=== PATIENT | female | born 1945 | race Caucasian/White ===

== ENCOUNTER 2018-01-01 01:49 | Emergency (ER) | payer MEDICARE ==
[2018-01-01 03:05] LABS: Absolute Lymphocytes (CBC) 1.9 K/uL (0.7-4.9); Absolute Monocytes 0.6 K/uL (0.1-1.3); Absolute Neutrophil 2.6 K/uL (1.8-8.0); Basophils % 1.2 % (0-1.3); Eosinophils % 7.7 % (0-4.4); Hematocrit 34.9 % (36.0-45.0); Lymphocytes % 33.3 % (15.3-44.8); MCV 96.6 fL (80-100); MPV 7.6 fL (7.6-11.3); Monocytes % 11.5 % (3.3-12.3); RBC Red Blood Cell Count 3.61 M/uL (3.86-4.86)
[2018-01-01 03:08] LABS: Protime INR 0.99
[2018-01-01 03:22] LABS: ALT/SGPT 19 U/L (12-78); AST/SGOT 20 U/L (15-37); Albumin 3.6 g/dL (3.4-5.0); Alkaline Phosphatase 72 U/L (45-117); BUN Blood Urea Nitrogen 20 mg/dL (7-18); Bicarbonate 32 mmol/L (21-32); Bilirubin Direct 0.1 mg/dL (0-0.2); Bilirubin Total 0.4 mg/dL (0.2-1.0); Glucose Level 102 mg/dL (74-106); Magnesium 1.9 mg/dL (1.8-2.4); NT PRO-BNP 125 pg/mL (<125); Protein, Total 7.1 g/dL (6.4-8.2); Sodium Level 141 mmol/L (136-145); Troponin (Emerg Dept Use Only) < 0.02 ng/mL (0.0-0.045)
[2018-01-01] MEDS ORDERED: POTASSIUM CL SA 10 MEQ TAB PO ONE (04:21)
--- NOTE | 2018-01-01 05:46 | ER ---
Nurse's Notes [facility] Name: Whitney Schmidt Age: 72 yrs Sex: Female : 1945 Arrival Date: 01/01/2018 Time: 01:50 Bed 20 Private MD: Jose Shelton C Diagnosis: Chest pain. Hypokalemia Presentation: 01/01 02:12 Presenting complaint: Patient states: sharp central chest pain woke her from sleep at ak1 0030. pt denies SOB, pt denies N/V. Transition of care: patient was not received from another setting of care. Onset of symptoms was January 01, 2018 at 00:30. Risk Assessment: Do you want to hurt yourself or someone else? Patient reports no desire to harm self or others. Initial Sepsis Screen: Does the patient meet any 2 criteria? No. Patient's initial sepsis screen is negative. Does the patient have a suspected source of infection? No. Patient's initial sepsis screen is negative. Care prior to arrival: None. 02:12 Method Of Arrival: Ambulatory ak 02:12 Acuity: MIRLANDE 3 ak1 Triage Assessment: 02:16 General: Appears in no apparent distress. Behavior is calm, cooperative. Pain: Denies ak1 pain. EENT: No signs and/or symptoms were reported regarding the EENT system. Neuro: No deficits noted. Cardiovascular: Reports chest pain, Rhythm is sinus rhythm. Respiratory: No deficits noted. GI: No signs and/or symptoms were reported involving the gastrointestinal system. : No signs and/or symptoms were reported regarding the genitourinary system. Derm: No signs and/or symptoms reported regarding the dermatologic system. Musculoskeletal: No signs and/or symptoms reported regarding the musculoskeletal system. Historical: - Allergies: 02:16 Morphine; ak1 - Home Meds: 02:16 levothyroxine oral [Active]; lisinopril 5 mg Oral tab 1 tab once daily [Active]; ak1 indapamide 2.5 mg oral tab 1 tab once daily [Active]; atorvastatin 40 mg oral tab 1 tab once daily [Active]; Centrum oral oral [Active]; Citracal Oral [Active]; Ocuvite oral oral [Active]; aspirin 81 mg Oral TbEC 1 tab once daily [Active]; - PMHx: 02:16 Hypothyroidism; Hyperlipidemia; Hypertension; ak1 - PSHx: 02:16 Hysterectomy; pelvic floor sx; Tonsillectomy; Carpal Tunnel Repair; ak1 - Immunization history:: Adult Immunizations unknown. - Social history:: Smoking status: Patient/guardian denies using tobacco. - Ebola Screening: : No symptoms or risks identified at this time. Screenin:18 Abuse screen: Denies threats or abuse. Denies injuries from another. Nutritional ak1 screening: No deficits noted. Tuberculosis screening: No symptoms or risk factors identified. Fall Risk None identified. Assessment: 02:18 Pain: Denies pain. Pain does not radiate. Pain began 2 hours ago. ak1 02:18 Reassessment: see triage assessment. ak1 03:28 Reassessment: Patient appears in no apparent distress at this time. No changes from ak1 previously documented assessment. Patient and/or family updated on plan of care and expected duration. Pain level reassessed. Patient is alert, oriented x 3, equal unlabored respirations, skin warm/dry/pink. Patient states feeling better. Patient states symptoms have improved. 05:47 Reassessment: Patient appears in no apparent distress at this time. No changes from ak1 previously documented assessment. Patient and/or family updated on plan of care and expected duration. Pain level reassessed. Patient is alert, oriented x 3, equal unlabored respirations, skin warm/dry/pink. Patient states feeling better. Patient states symptoms have improved. Vital Signs: 02:16 BP 93 / 72; Pulse 72; Resp 16; Temp 97.8(O); Pulse Ox 100% on R/A; Weight 68.04 kg (R); ak1 Height 5 ft. 4 in. (162.56 cm) (R); Pain 0/10; 03:28 BP 135 / 65; Pulse 69; Resp 16; Temp 97.8; Pulse Ox 100% on R/A; Pain 0/10; ak1 05:47 BP 122 / 49; Pulse 67; Resp 16; Temp 97.8; Pulse Ox 100% on R/A; Pain 0/10; ak1 05:58 BP 127 / 67; Pulse 66; Resp 18; Pulse Ox 100% on R/A; Pain 0/10; ak1 02:16 Body Mass Index 25.75 (68.04 kg, 162.56 cm) ak1 ED Course: 01:50 Patient arrived in ED. al2 01:51 Jose Shelton MD is Private Physician. al2 01:52 Deana Elias, AIDA is Primary Nurse. ea 01:52 Stefano Wilburn MD is Attending Physician. pkl 02:12 Carrie Hobbs, RN is Primary Nurse. ak1 02:13 Triage completed. ak1 02:16 Arm band placed on Patient placed in an exam room, on a stretcher, on pulse oximetry. ak1 EKG completed in triage. Results shown to MD. 02:17 Patient maintains SpO2 saturation greater than 95% on room air. ak1 02:18 Patient has correct armband on for positive identification. Placed in gown. Bed in low ak1 position. Call light in reach. Side rails up X 1. Adult w/ patient. quality assurance monitor chassis on. Pulse ox on. NIBP on. Door closed. Warm blanket given. 02:50 Initial lab(s) drawn, by me, sent to lab. Inserted saline lock: 20 gauge in left bb antecubital area, using aseptic technique. Blood collected. 03:00 X-ray completed. Portable x-ray completed in exam room. Patient tolerated procedure sg4 well. 03:00 Radiology exam delayed due to IV insertion attempt and/or patient not having sg4 appropriate IV at this time. 03:01 XRAY Chest (1 view) In Process Unspecified. EDMS 03:36 Notified ED physician of a critical lab result(s). DDIMER [id number]. jb4 04:[address] via stretcher. kw1 05:08 CT Chest For PE Angio In Process Unspecified. EDMS 05:10 CT completed. Patient tolerated procedure well. Patient moved back from CT. kw1 05:44 Jose Shelton MD is Referral Physician. pkl 05:49 No provider procedures requiring assistance completed. ak1 05:56 IV discontinued, intact, bleeding controlled, No redness/swelling at site. Pressure ak1 dressing applied. Administered Medications: 04:19 Drug: K-Dur 40 mEq Route: PO; ak1 05:48 Follow up: Response: No adverse reaction ak1 Outcome: 05:45 Discharge ordered by MD. pkl 05:55 Discharged to home ambulatory, with family. ak1 05:55 Condition: good 05:55 Discharge instructions given to patient, family, Instructed on discharge instructions, follow up and referral plans. medication usage, Demonstrated understanding of instructions, follow-up care, medications, Prescriptions given X 1. 06:11 Patient left the ED. jb4 Signatures: Dispatcher [employer] EDMS Stefano Wilburn MD MD pkl Ballard, Brenda, RN RN bb Carrie Hobbs RN RN ak1 León Sexton RN RN jb4 Deana Elias RN RN ea Wilhelm, Kimberly kw1 Monica Burrell Susana 4
--- NOTE | 2018-01-01 05:46 | EDPHYS ---
Physician Documentation [facility] Name: Whitney Schmidt Age: 72 yrs Sex: Female : 1945 Arrival Date: 01/01/2018 Time: 01:50 Bed 20 Private MD: Jose Shelton C ED Physician Stefano Wilburn HPI: 01/01 02:29 This 72 yrs old Female presents to ER via Ambulatory with complaints of Chest pkl Pain, INDIGESTION. 02:29 The patient or guardian reports chest pain that is located primarily in the substernal pkl area. Onset: just prior to arrival, 2 hour(s) ago. The pain does not radiate. Associated signs and symptoms: The patient has no apparent associated signs or symptoms. The chest pain is described as dull. Historical: - Allergies: 02:16 Morphine; ak1 - Home Meds: 02:16 levothyroxine oral [Active]; lisinopril 5 mg Oral tab 1 tab once daily [Active]; ak1 indapamide 2.5 mg oral tab 1 tab once daily [Active]; atorvastatin 40 mg oral tab 1 tab once daily [Active]; Centrum oral oral [Active]; Citracal Oral [Active]; Ocuvite oral oral [Active]; aspirin 81 mg Oral TbEC 1 tab once daily [Active]; - PMHx: 02:16 Hypothyroidism; Hyperlipidemia; Hypertension; ak1 - PSHx: 02:16 Hysterectomy; pelvic floor sx; Tonsillectomy; Carpal Tunnel Repair; ak1 - Immunization history:: Adult Immunizations unknown. - Social history:: Smoking status: Patient/guardian denies using tobacco. - Ebola Screening: : No symptoms or risks identified at this time. ROS: 02:29 Eyes: Negative for injury, pain, redness, and discharge, ENT: Negative for injury, pkl pain, and discharge, Neck: Negative for injury, pain, and swelling. 02:29 Cardiovascular: Positive for chest pain. 02:29 Respiratory: Negative for cough, shortness of breath. 02:29 Abdomen/GI: Negative for abdominal pain, nausea, vomiting, and diarrhea. 02:29 Back: Negative for acute changes. 02:29 : Negative for urinary symptoms. 02:29 MS/extremity: Negative for acute changes. 02:29 Skin: Negative for rash. 02:29 Neuro: Negative for altered mental status. Exam: 02:29 Head/Face: Normocephalic, atraumatic. Eyes: Pupils equal round and reactive to light, pkl extra-ocular motions intact. Lids and lashes normal. Conjunctiva and sclera are non-icteric and not injected. Cornea within normal limits. Periorbital areas with no swelling, redness, or edema. ENT: Nares patent. No nasal discharge, no septal abnormalities noted. Tympanic membranes are normal and external auditory canals are clear. Oropharynx with no redness, swelling, or masses, exudates, or evidence of obstruction, uvula midline. Mucous membranes moist. Neck: Trachea midline, no thyromegaly or masses palpated, and no cervical lymphadenopathy. Supple, full range of motion without nuchal rigidity, or vertebral point tenderness. No Meningismus. Chest/axilla: Normal chest wall appearance and motion. Nontender with no deformity. No lesions are appreciated. Cardiovascular: Regular rate and rhythm with a normal S1 and S2. No gallops, murmurs, or rubs. Normal PMI, no JVD. No pulse deficits. Respiratory: Lungs have equal breath sounds bilaterally, clear to auscultation and percussion. No rales, rhonchi or wheezes noted. No increased work of breathing, no retractions or nasal flaring. Abdomen/GI: Soft, non-tender, with normal bowel sounds. No distension or tympany. No guarding or rebound. No evidence of tenderness throughout. Back: No spinal tenderness. No costovertebral tenderness. Full range of motion. Skin: Warm, dry with normal turgor. Normal color with no rashes, no lesions, and no evidence of cellulitis. MS/ Extremity: Pulses equal, no cyanosis. Neurovascular intact. Full, normal range of motion. Neuro: Awake and alert, GCS 15, oriented to person, place, time, and situation. Cranial nerves II-XII grossly intact. Motor strength 5/5 in all extremities. Sensory grossly intact. Cerebellar exam normal. Normal gait. Vital Signs: 02:16 BP 93 / 72; Pulse 72; Resp 16; Temp 97.8(O); Pulse Ox 100% on R/A; Weight 68.04 kg (R); ak1 Height 5 ft. 4 in. (162.56 cm) (R); Pain 0/10; 03:28 BP 135 / 65; Pulse 69; Resp 16; Temp 97.8; Pulse Ox 100% on R/A; Pain 0/10; ak1 05:47 BP 122 / 49; Pulse 67; Resp 16; Temp 97.8; Pulse Ox 100% on R/A; Pain 0/10; ak1 05:58 BP 127 / 67; Pulse 66; Resp 18; Pulse Ox 100% on R/A; Pain 0/10; ak1 02:16 Body Mass Index 25.75 (68.04 kg, 162.56 cm) ak1 MDM: 01:52 Patient medically screened. pkl 05:43 Data reviewed: vital signs, nurses notes, lab test result(s), EKG, radiologic studies, pkl CT scan, plain films. ED course: Patient feeling better. Asymptomatic. 01/01 02:28 Order name: Basic Metabolic Panel; Complete Time: 03:56 pkl 01/01 02:28 Order name: CBC with Diff; Complete Time: 03:56 pkl 01/01 02:28 Order name: LFT's; Complete Time: 03:56 pkl 01/01 02:28 Order name: Magnesium; Complete Time: 03:56 pkl 01/01 02:28 Order name: NT PRO-BNP; Complete Time: 03:56 pkl 01/01 02:28 Order name: PT-INR; Complete Time: 03:56 pkl 01/01 02:28 Order name: Troponin (emerg Dept Use Only); Complete Time: 03:56 pkl 01/01 02:28 Order name: XRAY Chest (1 view) pk 01/01 02:28 Order name: EKG; Complete Time: 02:29 pkl 01/01 03:00 Order name: D-Dimer; Complete Time: 03:56 EDMS 01/01 04:07 Order name: Troponin (emerg Dept Use Only); Complete Time: 05:41 pkl 01/01 04:07 Order name: CT Chest For PE Angio pk 01/01 02:28 Order name: Cardiac monitoring; Complete Time: 02:39 pkl 01/01 02:28 Order name: EKG - Nurse/Tech; Complete Time: 02:39 pkl 01/01 02:28 Order name: IV Saline Lock; Complete Time: 02:58 pkl 01/01 02:28 Order name: Labs collected and sent; Complete Time: 02:58 pkl 01/01 02:28 Order name: O2 Per Protocol; Complete Time: 02:39 pkl 01/01 02:28 Order name: O2 Sat Monitoring; Complete Time: 02:39 pkl 01/01 04:07 Order name: EKG; Complete Time: 04:08 pkl Administered Medications: 04:19 Drug: K-Dur 40 mEq Route: PO; ak1 05:48 Follow up: Response: No adverse reaction ak1 Disposition: 01/01/18 05:45 Discharged to Home. Impression: Chest pain. Hypokalemia. - Condition is Stable. - Prescriptions for Potassium Chloride 10 mEq Oral Capsule, Sustained Release - take 1 tablet by ORAL route every 12 hours; 20 tablet. - Medication Reconciliation Form, Thank You Letter, Antibiotic Education, Prescription Opioid Use form. - Follow up: Jose Shelotn MD; When: 2 - 3 days; Reason: Re-evaluation by your physician. - Problem is new. - Symptoms are resolved. Signatures: Dispatcher [employer] [facility] Stefano Wilburn MD MD pkl Carrie Hobbs, RN RN ak1 León Sexton, RN RN jb4 Corrections: (The following items were deleted from the chart) 03:00 02:29 D-DIMER+[id number].LAB.BRZ ordered. [facility] 06:11 05:45 01/01/2018 05:45 Discharged to Home. Impression: Chest pain. Hypokalemia. jb4 Condition is Stable. Forms are Medication Reconciliation Form, Thank You Letter, Antibiotic Education, Prescription Opioid Use. Follow up: Jose Shelton; When: 2 - 3 days; Reason: Re-evaluation by your physician. Problem is new. Symptoms are resolved. pkl
--- NOTE | 2018-01-01 05:49 | EKG ---
Test Date: 2018-01-01 Test Time: 02:06:43 Piping Manager: KACEY MEASUREMENT RESULTS: Intervals: Rate: 75 GA: 146 QRSD: 90 QT: 408 QTc: 455 Anabel: P: 49 GA: 146 QRS: 39 T: 62 INTERPRETIVE STATEMENTS: Sinus rhythm with marked sinus arrhythmia Otherwise normal ECG Compared to ECG 06/18/2011 04:38:36 ST (T wave) deviation no longer present Electronically Signed On 01-01-18 05:48:37 SPICE GRINDER by Kayden Bryant
[2018-01-01 06:20] VITALS: TEMP 97.8; O2SAT 100
[2018-01-01 06:24] VITALS: BP 127/67
--- NOTE | 2018-01-01 10:39 | RAD REPORT ---
EXAM DESCRIPTION: CT - Chest For Pe Angio - 01/01/2018 6:03 am CLINICAL HISTORY: Chest pain. CHEST PAIN COMPARISON: No comparisons TECHNIQUE: CT angiogram of the pulmonary arteries was performed with MIP. All CT scans are performed using dose optimization technique as appropriate and may include automated exposure control or mA/KV adjustment according to patient size. FINDINGS: No evidence of pulmonary thromboembolism. Distal branch assessment is somewhat limited due to respiratory motion artifact. No acute aortic finding demonstrated. 10 x 9 mm noncalcified pulmonary nodule present in the right middle lobe posteriorly. Mild interstiti al pulmonary edema suspected throughout the lung conley. No significant pericardial or pleural fluid. No concerning bony finding. IMPRESSION: No evidence of pulmonary thromboembolism. Mild interstitial pulmonary edema is seen. 10 x 9 mm noncalcified pulmonary nodule right middle lobe posteriorly. According to the 2017 Fleischner guidelines for solid nodules >8 mm in size: Single nodule: *Consider CT at 3 months, PET-CT or biopsy.
--- NOTE | 2018-01-01 11:03 | RAD REPORT ---
EXAM DESCRIPTION: RAD - Chest Single View - 01/01/2018 3:01 am CLINICAL HISTORY: CHEST PAIN Chest pain. COMPARISON: Chest Pa And Lat (2 Views) dated 02/24/2016; CHEST PA AND LAT 2 VIEW dated 02/21/2015; CHES T SINGLE VIEW dated 06/18/2011; CHEST SINGLE VIEW dated 08/13/2008 FINDINGS: Portable technique limits examination quality. The lungs are emphysematous but grossly clear. The heart is normal in size. No displaced fractures. IMPRESSION: COPD.
== END 2018-01-01 06:11 | disposition home or self-care (01) ==
LOC: ER 01:49
DX: E87.6 Hypokalemia (principal); I10 Essential (primary) hypertension; E78.5 Hyperlipidemia, unspecified; E03.9 Hypothyroidism, unspecified; Z79.82 Long term (current) use of aspirin; Z88.5 Allergy status to narcotic agent
CPT/HCPCS: 36415; 71045; 71275; 80048; 80076; 83735; 83880; 84484 ×2; 85025; 85379; 85610; 93005; 99285; Q9967

== ENCOUNTER 2019-03-30 20:21 | Emergency (ER) | payer OTHER ==
[2019-03-30] MEDS ORDERED: TETRACAINE HCL 0.5% 4ML OPTH ONE (21:10)
[2019-03-30] MEDS ORDERED: FLUORESCEIN SODIUM 1 MG/WRAP ONE (21:10)
[2019-03-30] MEDS ORDERED: HYDROCODONE/APAP 7.5/325 MG TAB ONE (21:19)
[2019-03-30 22:22] LABS: Absolute Lymphocytes (CBC) 1.3 K/uL (0.7-4.9); Basophils % 0.7 % (0-1.3); Hematocrit 40.3 % (36.0-45.0); Lymphocytes % 24.2 % (15.3-44.8); MPV 8.2 fL (7.6-11.3); RBC Red Blood Cell Count 4.15 M/uL (3.86-4.86)
[2019-03-30 22:35] LABS: Potassium 3.6 mmol/L (3.5-5.1)
--- NOTE | 2019-03-30 23:18 | ER ---
Nurse's Notes [facility] Name: Whitney Schmidt Age: 74 yrs Sex: Female : 1945 Arrival Date: 03/30/2019 Time: 20:26 Bed 20 Private MD: Jose Shelton C Diagnosis: Ocular pain, right eye Presentation: 03/30 20:57 Presenting complaint: Patient states: Reports right eye pain and redness that started ea at about 1130 AM today, denies vision changes. Transition of care: patient was not received from another setting of care. Mechanism of Injury: No Mechanism of Injury. The patient denies any loss of vision. Onset of symptoms was March 30, 2019. Risk Assessment: Do you want to hurt yourself or someone else? Patient reports no desire to harm self or others. Initial Sepsis Screen: Does the patient meet any 2 criteria? No. Patient's initial sepsis screen is negative. Does the patient have a suspected source of infection? No. Patient's initial sepsis screen is negative. Care prior to arrival: None. 20:57 Method Of Arrival: Ambulatory ea 20:57 Acuity: MIRLANDE 3 ea Historical: - Allergies: 21:05 Morphine; ea - Home Meds: 21:05 Ocuvite Oral [Active]; lisinopril 5 mg Oral tab 1 tab once daily [Active]; ea levothyroxine oral [Active]; indapamide 2.5 mg Oral tab 1 tab once daily [Active]; Citracal Oral [Active]; Centrum Oral [Active]; atorvastatin 40 mg Oral tab 1 tab once daily [Active]; aspirin 81 mg Oral TbEC 1 tab once daily [Active]; - PMHx: 21:05 Hypothyroidism; Hypertension; Hyperlipidemia; ea - PSHx: 21:05 Carpal Tunnel Repair; Tonsillectomy; pelvic floor sx; Hysterectomy; ea - Immunization history:: Adult Immunizations up to date. - Coronavirus screen:: The patient has NOT traveled to [place] in the past 14 days. - Social history:: Smoking status: Patient denies any tobacco usage or history of. - Ebola Screening: : No symptoms or risks identified at this time. Screenin:00 Abuse screen: Denies threats or abuse. Nutritional screening: No deficits noted. ea Tuberculosis screening: No symptoms or risk factors identified. Fall Risk None identified. Assessment: 21:01 EENT: Eyes Sclera/Cornea are reddened in outer aspect of conjuctiva of right eye and ea inner aspect of conjuctiva of right eye. 21:01 General: Appears uncomfortable, Behavior is calm, cooperative, appropriate for age. ea Pain: Complains of pain in inner aspect of conjuctiva of right eye and outer aspect of conjuctiva of right eye. Neuro: Level of Consciousness is awake, alert, obeys commands, Oriented to person, place, time. Respiratory: Airway is patent Respiratory effort is even, unlabored, Respiratory pattern is regular, symmetrical. Derm: Skin is pink, warm \T\ dry. 22:15 Reassessment: Patient appears in no apparent distress at this time. Patient and/or hb family updated on plan of care and expected duration. Pain level reassessed. Patient is alert, oriented x 3, equal unlabored respirations, skin warm/dry/pink. 23:00 Reassessment: Patient appears in no apparent distress at this time. Patient and/or hb family updated on plan of care and expected duration. Pain level reassessed. Patient is alert/active/playful, equal unlabored respirations, skin warm/dry/pink. Vital Signs: 20:59 BP 159 / 72; Pulse 83; Resp 18; Temp 98; Pulse Ox 100% on R/A; Weight 70.76 kg; Height ea 5 ft. 5 in. (165.10 cm); Pain 7/10; 20:59 Body Mass Index 25.96 (70.76 kg, 165.10 cm) ea Visual Acuity: 21:57 Left Eye Visual acuity 20/25, ; Right Eye Visual acuity 20/25, ; Both Eyes Visual ea acuity 20/20; With Lenses; ED Course: 20:26 Patient arrived in ED. es 20:26 Jose Shelton MD is Private Physician. es 20:55 Elliot Nation MD is Attending Physician. kdr 20:57 Deana Elias RN is Primary Nurse. ea 20:59 Triage completed. ea 21:00 Patient has correct armband on for positive identification. Bed in low position. Call ea light in reach. Side rails up X2. 21:01 Arm band placed on right wrist. Patient placed in an exam room, on a stretcher, on ea pulse oximetry. 23:16 Jose Shelton MD is Referral Physician. kdr 23:16 Sunny Raphael MD is Referral Physician. kdr 23:32 No provider procedures requiring assistance completed. IV discontinued, intact, hb bleeding controlled, No redness/swelling at site. Pressure dressing applied. Administered Medications: 21:08 Drug: Fluorescein Strip 1 strip Route: Ophthalmic; Site: right eye; ea 21:09 Drug: Tetracaine Drops 0.5 % 1 drops Route: Ophthalmic; Site: right eye; ea 21:19 Drug: Hastings (7.5 mg-325 mg) 1 tabs Route: PO; ea Outcome: 23:17 Discharge ordered by MD. kdr 23:32 Discharged to home ambulatory, with family. hb 23:32 Condition: stable 23:32 Discharge instructions given to patient, family, Instructed on discharge instructions, follow up and referral plans. medication usage, Demonstrated understanding of instructions, follow-up care, medications, Prescriptions given X 1. 23:33 Patient left the ED. hb Signatures: Elliot Nation MD MD kdr Lisa Azul Heather, RN RN Deana Elias RN RN marimar
--- NOTE | 2019-03-30 23:18 | EDPHYS ---
Physician Documentation [facility] Name: Whitney Schmidt Age: 74 yrs Sex: Female : 1945 Arrival Date: 03/30/2019 Time: 20:26 Bed 20 Private MD: Jose Shelton C ED Physician Elliot Nation HPI: 03/30 21:41 This 74 yrs old Female presents to ER via Ambulatory with complaints of Eye kdr Pain. 21:41 The patient is experiencing pain, redness, tearing, to the right eye, caused by an kdr unknown mechanism. Onset: The symptoms/episode began/occurred suddenly, at 11:30. Duration: the symptoms are continuous. Aggravated by nothing. rubbing, Touching the area around the eye, appears puffy and swollen Alleviated by nothing. Associated signs and symptoms: Pertinent positives: Pertinent negatives: chills, dizziness, ear ache, fever, headache, runny nose. Patient wears glasses, wears soft contacts. Severity of symptoms: At their worst the symptoms were moderate in the emergency department the symptoms are unchanged. The patient has not experienced similar symptoms in the past. The patient has not recently seen a physician. The patient denies injury or foreign body. She denies going into a dark room or any other possible precipitant of narrow angle glaucoma. Historical: - Allergies: 21:05 Morphine; ea - Home Meds: 21:05 Ocuvite Oral [Active]; lisinopril 5 mg Oral tab 1 tab once daily [Active]; ea levothyroxine oral [Active]; indapamide 2.5 mg Oral tab 1 tab once daily [Active]; Citracal Oral [Active]; Centrum Oral [Active]; atorvastatin 40 mg Oral tab 1 tab once daily [Active]; aspirin 81 mg Oral TbEC 1 tab once daily [Active]; - PMHx: 21:05 Hypothyroidism; Hypertension; Hyperlipidemia; ea - PSHx: 21:05 Carpal Tunnel Repair; Tonsillectomy; pelvic floor sx; Hysterectomy; ea - Immunization history:: Adult Immunizations up to date. - Coronavirus screen:: The patient has NOT traveled to [place] in the past 14 days. - Social history:: Smoking status: Patient denies any tobacco usage or history of. - Ebola Screening: : No symptoms or risks identified at this time. ROS: 21:41 Constitutional: Negative for fever, chills, and weight loss, ENT: Negative for injury, kdr pain, and discharge, Neck: Negative for injury, pain, and swelling, Cardiovascular: Negative for chest pain, palpitations, and edema, Respiratory: Negative for shortness of breath, cough, wheezing, and pleuritic chest pain, Abdomen/GI: Negative for abdominal pain, nausea, vomiting, diarrhea, and constipation, Back: Negative for injury and pain, : Negative for injury, bleeding, discharge, and swelling, MS/Extremity: Negative for injury and deformity, Skin: Negative for injury, rash, and discoloration, Neuro: Negative for headache, weakness, numbness, tingling, and seizure activity. Psych: Negative for depression, anxiety, suicide ideation, homicidal ideation, and hallucinations, Allergy/Immunology: Negative for hives, rash, and allergies, Endocrine: Negative for neck swelling, polydipsia, polyuria, polyphagia, and marked weight changes, Hematologic/Lymphatic: Negative for swollen nodes, abnormal bleeding, and unusual bruising. 21:41 Eyes: Positive for pain, swelling, Negative for blurry vision, discharge, foreign body sensation, icterus, injury or acute deformity, itching, matting, photophobia, sunken appearance, tearing, vision loss, visual disturbance. Exam: 21:41 Constitutional: This is a well developed, well nourished patient who is awake, alert, kdr and in no acute distress. Head/Face: Normocephalic, atraumatic. ENT: Nares patent. No nasal discharge, no septal abnormalities noted. Tympanic membranes are normal and external auditory canals are clear. Oropharynx with no redness, swelling, or masses, exudates, or evidence of obstruction, uvula midline. Mucous membranes moist. 21:41 Eyes: Periorbital structures: swelling, that is mild, on the right supraorbital ridge, right upper eyelid and right lower eyelid, Pupils: right pupil is approximately 3 mm(s), left pupil is approximately 3 mm(s), Extraocular movements: intact throughout, Conjunctiva: injected, in the right eye, pale, Corneas: no acute changes, abrasion, is not appreciated, foreign body, is not appreciated, a fluorescein strip employed to appreciate the findings, Sclera: Anterior chamber: no acute changes, Intraocular pressure: right eye = 14mmHg. Vital Signs: 20:59 BP 159 / 72; Pulse 83; Resp 18; Temp 98; Pulse Ox 100% on R/A; Weight 70.76 kg; Height ea 5 ft. 5 in. (165.10 cm); Pain 7/10; 20:59 Body Mass Index 25.96 (70.76 kg, 165.10 cm) ea Visual Acuity: 21:57 Left Eye Visual acuity 20/25, ; Right Eye Visual acuity 20/25, ; Both Eyes Visual ea acuity 20/20; With Lenses; MDM: 21:41 Data reviewed: vital signs, nurses notes, lab test result(s), radiologic studies. kdr 23:17 Patient medically screened. kdr 23:25 ED course: The patient stated that her pain had improved but her right eye was still kdr tender to touch. The sclera was still injected but there was no pain pupils remained poorly reactive to light but symetric. 03/31 06:05 ED course: There was no apparent change in vision or other finding suggestive of an kdr immediate threat to ocular or visual health. 03/30 21:31 Order name: CBC with Diff kdr 03/30 21:31 Order name: Chem 7 kdr 03/30 21:31 Order name: ESR kdr 03/30 22:32 Order name: CBC with Automated Diff EDMS 03/30 22:36 Order name: Basic Metabolic Panel; Complete Time: 22:40 EDMS 03/30 21:41 Order name: Visual Acuity; Complete Time: 22:04 kdr Administered Medications: 03/30 21:08 Drug: Fluorescein Strip 1 strip Route: Ophthalmic; Site: right eye; ea 21:09 Drug: Tetracaine Drops 0.5 % 1 drops Route: Ophthalmic; Site: right eye; ea 21:19 Drug: [place] (7.5 mg-325 mg) 1 tabs Route: PO; ea Disposition: 03/30/19 23:17 Discharged to Home. Impression: Ocular pain, right eye. - Condition is Fair. - Prescriptions for Tramadol 50 mg Oral Tablet - take 1 tablet by ORAL route every 8 hours as needed; 12 tablet. - Medication Reconciliation Form, Thank You Letter, Prescription Opioid Use form. - Follow up: Jose Shelton MD; When: 48 Hours; Reason: If symptoms return, Further diagnostic work-up, Recheck today's complaints, Continuance of care, Re-evaluation by your physician. Follow up: Sunny Raphael MD; When: 1 - 2 days; Reason: If symptoms return, Further diagnostic work-up, Recheck today's complaints, Continuance of care, Re-evaluation by your physician. - Notes: Return to the [facility] if you have any additional pain or change in your vision and you are unable to see your doctor Signatures: Dispatcher [employer] EDMS Elliot Nation MD MD [facility] Pushpa Harrington RN RN Deana Elias RN RN ea Corrections: (The following items were deleted from the chart) 23:33 23:17 03/30/2019 23:17 Discharged to Home. Impression: Ocular pain, right eye. hb Condition is Fair. Forms are Medication Reconciliation Form, Thank You Letter, Antibiotic Education, Prescription Opioid Use. Follow up: Jose Shelton; When: 48 Hours; Reason: If symptoms return, Further diagnostic work-up, Recheck today's complaints, Continuance of care, Re-evaluation by your physician. Follow up: Sunny Raphael; When: 1 - 2 days; Reason: If symptoms return, Further diagnostic work-up, Recheck today's complaints, Continuance of care, Re-evaluation by your physician. kdr
[2019-03-30 23:39] VITALS: BP 159/72; TEMP 98; O2SAT 100
--- NOTE | 2019-04-02 12:34 | RAD REPORT ---
EXAM DESCRIPTION: CT - Orbits Wo Con W/ Mpr - 03/31/2019 4:22 am CLINICAL HISTORY: The patient is 74 years old and is Female; eye pain TECHNIQUE: Axial computed tomography images of the orbits without intravenous contrast. Sagittal a nd coronal reformatted images were created and reviewed. This CT exam was performed using one or mo re of the following dose reduction techniques: automated exposure control, adjustment of the mA and /or kV according to patient size, and/or use of iterative reconstruction technique. COMPARISON: No relevant prior studies available. FINDINGS: ORBITS: The globes, extraocular muscles, and optic nerve complexes are within normal mosley its. SINUSES: Unremarkable. No air-fluid levels. BONES/JOINTS: The orbital floors and damon are intact. SOFT TISSUES: Unremarkable. IMPRESSION: No acute findings. Electronically signed by: Catalina Hay MD 03/30/2019 10:20 PM CONTRACTING EXECUTIVE Due to temporary technical issues with the PACS/Fluency reporting system, reports are being signed by the in house radiologist as a courtesy to ensure prompt reporting. The interpreting radiologist is f ully responsible for the content of the report.
== END 2019-03-30 23:33 | disposition home or self-care (01) ==
LOC: ER 20:21
DX: H57.11 Ocular pain, right eye (principal); Z88.6 Allergy status to analgesic agent; E03.9 Hypothyroidism, unspecified; I10 Essential (primary) hypertension; E78.5 Hyperlipidemia, unspecified
CPT/HCPCS: 36415; 70480; 76377; 80048; 85025; 85652; 99283

== ENCOUNTER 2020-03-17 07:25 | Day surgery (SDC) | payer OTHER ==
[2020-03-17 07:48] LABS: Absolute Lymphocytes (CBC) 2.1 K/uL (0.7-4.9); Hematocrit 40.1 % (36.0-45.0); Lymphocytes % 33.9 % (15.3-44.8)
[2020-03-17 08:04] LABS: Potassium 3.6 mmol/L (3.5-5.1)
[2020-03-17] MEDS: Ringers Lactate 1,000 ML IV ONE ×3 (08:20→08:57)
[2020-03-17] MEDS ORDERED: CEFAZOLIN/SWI 1gm 1 GM/10 ML SYR ONE (08:28)
[2020-03-17] MEDS ORDERED: FENTANYL CITR 100 MCG/2 ML ONE (08:34)
[2020-03-17] MEDS ORDERED: propofoL 200 MG/20 ML VIAL IV ONE (08:34)
[2020-03-17] MEDS ORDERED: ONDANSETRON 4 MG/2 ML VIAL ONE (08:35)
[2020-03-17] MEDS ORDERED: dexAMETHasone 4 MG/ML VIAL ONE (08:35)
[2020-03-17] MEDS ORDERED: KETOROLAC 30 MG/ML INJ ONE (08:35)
[2020-03-17] MEDS ORDERED: LIDOCAINE 2% MPF 5 ML VIAL ONE (08:35)
--- NOTE | 2020-03-17 09:25 | P.BOP ---
Preoperative diagnosis: Tender back subQ mass 3.5 x 3.5 cm, erythematous Postoperative diagnosis: same Primary procedure: Excisional biopsy of back subQ mass 3.5 x 3.5 cm Supervisor Roller Shop: Jacqueline Quick (Ruthie) Estimated blood loss: <10cc Specimen: mass Findings: mass Anesthesia: General Complications: None Drain(s): Other Transferred to: Recovery Room Condition: Good
[2020-03-17 09:47] VITALS: O2SAT 98
[2020-03-17 10:10] VITALS: BP 139/64; TEMP 97.1
--- NOTE | 2020-04-14 11:55 | OP ---
Date of Procedure: 03/17/2020 Surgeon: Earl Noel MD Business Unit Leader: Jacqueline Servin. Preoperative Diagnosis: Tender back subcutaneous mass, 3.5 x 3.5 cm. Postoperative Diagnosis: Tender back subcutaneous mass, 3.5 x 3.5 cm. Procedure Performed: Excisional biopsy of tender back subcutaneous erythematous mass, 3.5 x 3.5 cm. Ebl: Less than 10 cc. Specimen: Mass. Anesthesia: General plus local. Indications: This is the case of a 75-year-old patient, comes to us with a tender subcutaneous mass. The patient has been on and off to trying to see if she gets better and sometimes get red, sometime s get tender. She wants that excised. The benefits, alternatives, and risks of excision were fully explained which include, but not limited to infection, bleeding, damage to adjacent structures, anest hesia complication, recurrence, [place], and even . She also understands this may need more than one surgical intervention. She may need wound care. She may need a wet-to-dry dressing. She signed a consent. Description Of Proecdure: The patient was brought to the operating room, placed in supine position. Anesthesia was done without complication. The area of concern was previously marked by me and the p atient in the holding room. We proceeded to do wide excision of that area. Excision included the en tire mass. The area was profusely irrigated. Hemostasis was obtained. Local anesthesia was applied . After irrigation was done and no bleeding, we proceeded then to approximate the area with 3-0 chromic. The patient tolerated the procedure well. The patient was se nt to recovery in stable condition. ROSETTE/MELINDA Voice ID: [id number] Report ID: [id number]
--- NOTE | 2020-04-14 11:58 | DS ---
Date of Discharge: 03/17/2020 Diagnosis: A tender back subcutaneous mass, 3.5 x 3.5 cm. Procedure: Excisional biopsy of tender subcutaneous mass. Disposition: Home. Medications: See orders. ROSETTE/MODL Voice ID: [id number] Report ID: [id number]
== END 2020-03-17 10:40 | disposition home or self-care (01) ==
LOC: OR 07:25
PROVIDERS: ATTEND Surgery
PROC: 0JB70ZZ Excision of Back Subcutaneous Tissue and Fascia, Open Approach (ICD-10-PCS; principal; 2020-03-17 08:30)
DX: L72.0 Epidermal cyst (principal); Z20.822 Contact with and (suspected) exposure to COVID-19
CPT/HCPCS: 85025; 80048; 36415; 88304; 11404; U0002; J2704; J1100; J3010; J0690; J7120; J2405; 88305

== ENCOUNTER 2024-11-15 07:52 | Emergency (ER) | payer OTHER ==
--- OUTSIDE RECORDS SUMMARY | 2024-11-15 07:55 | XMS REPORT | Continuity of Care Document ---
Author Name Unknown Address [address] [place] [id number] [facility] [place] Address [address] [place] [address] [address] [place] [address] Care Team Providers Care Computer Systems Integrator Name Role Phone OPAL MENSAH Attending Clinician Unavailable Therapy, [facility] Covid Infusion Attending Clinician Unavailable Opal Mensah MD Attending Clinician [phone] Doctor Unassigned, Garey Attending Clinician U navailable Problems Condition Name Condition Details Condition Category Status Onset Date Resolution Date Last Treatment Date Treating Clinician Comments Source Abdominal pain Abdominal Pain Problem Active 06-28 00:00: 00 [facility] Hypertensi ve disorder Hypertensi ve Disorder Problem Active 11-10 00:00: 00 [facility] Osteopenia Osteopenia Problem Active 11-10 00:00: 00 [facility] Thyroid nodule Thyroid Nodule Problem Active 11-10 00:00: 00 [facility] Hypothyroi dism Hypothyroi dism Problem Active 11-10 00:00: 00 [facility] Atrophic vaginitis Atrophic Vaginitis Problem Active 2016-02 00:00: 00 [facility] Female stress incontinen ce Female Stress Incontinen ce Problem Active 09-07 00:00: 00 [facility] Bladder muscle dysfunctio n - overactive Bladder Muscle Dysfunctio n - Overactive Problem Active 09-07 00:00: 00 [facility] Uterovagin al prolapse Uterovagin al Prolapse Problem Active 05-27 00:00: 00 [facility] Essential hypertensi on Essential Hypertensi on Problem Active 04-21 00:00: 00 [facility] Urinary incontinen ce Urinary Incontinen ce Problem Active 04-21 00:00: 00 [facility] Gynecologi zoran examinatio n abnormal Gynecologi zoran Examinatio n Abnormal Problem Active 2015-02 018 00:00: 00 [facility] Lateral cystocele Lateral Cystocele Problem Active 05-13 00:00: 00 [facility] Herniation of rectum into vagina Herniation of Rectum into Vagina Problem Active 05-13 00:00: 00 [facility] Genuine stress incontinen ce Genuine Stress Incontinen ce Problem Active 02-18 00:00: 00 [facility] Overactive urinary bladder Overactive Urinary Bladder Problem Active 2014-02 00:00: 00 [facility] Acute vulvitis Acute Vulvitis Problem Active 2014-02 00:00: 00 [facility] Incomplete uterovagin al prolapse Incomplete Uterovagin al Prolapse Problem Active 2014-02 00:00: 00 [facility] Allergies, Adverse Reactions, Alerts Allergy Name Allergy Type Status Severity Reaction(s) Onset Date Inactive Date Treating Clinician Comments Source Morphine Allergy to substanc e Active [facility] NO KNOWN ALLERGIE S Drug Class Active [facility] Social History Social Habit Start Date Stop Date Quantity Comments Source Sex Ass[birth year] At 1945 00:00:00 1945 00:00:00 [facility] Smoking Status Start Date Stop Date Source Never Smoker [facility] Unknown if ever smoked [facility] Medications Ordered Medication Name Filled Medication Name Start Date Stop Date Current Medication? Ordering Clinician Indication Dosage Frequency Signature (SIG) Comments Components Source imdevimab ([id number]) 600 mg, casirivimab ([id number]) 600 mg in NaCl 0.9% (NS) 60 mL infusion 08-30 13:30: 00 08-30 14:26 :00 No [id number] [facility] imdevimab ([id number]) 600 mg, casirivimab ([id number]) 600 mg in NaCl 0.9% (NS) 60 mL infusion 08-30 13:30: 00 08-30 14:26 :00 No [id number] IV Infusion, ONCE, 08/30/20 at 0830, For 1 dose
Ad automotive technology instructor as an IV infusion via pump or gravity through an intravenou s line containing a sterile, in-line or add-on 0.2-micron polyethers ulfone (PES) filter. Stable 36 hours refrigerat ed; 4 hours at room temperatur e.
[facility] acetaminoph en 300 mg-codeine 30 mg tablet TAKE 1 TABLET BY MOUTH EVERY 6 HOURS NEEDED FOR 7 DAYS acetaminoph en 300 mg-codeine 30 mg tablet TAKE 1 TABLET BY MOUTH EVERY 6 HOURS NEEDED FOR 7 DAYS No acetaminop hen 300 mg-codeine 30 mg tablet TAKE 1 TABLET BY MOUTH EVERY 6 HOURS NEEDED FOR 7 DAYS [facility] Asprin Ec Low Dose 81 mg tablet,xavier yed release Take 1 tablet every day by oral route. Asprin Ec Low Dose 81 mg tablet,xavier yed release Take 1 tablet every day by oral route. No 1 Q1D Asprin Ec Low Dose 81 mg tablet,del ayed release Take 1 tablet every day by oral route. [facility] atorvastati n 40 mg tablet TAKE 1 TABLET BY MOUTH ONCE DAILY AT BEDTIME atorvastati n 40 mg tablet TAKE 1 TABLET BY MOUTH ONCE DAILY AT BEDTIME No atorvastat in 40 mg tablet TAKE 1 TABLET BY MOUTH ONCE DAILY AT BEDTIME [facility] Caltrate 600 plus D Caltrate 600 plus D No Caltrate 600 plus D [facility] Cent[facility] Centrum No Cent[facility] levothyroxi ne 88 mcg tablet TAKE 1 TABLET BY MOUTH ONCE DAILY levothyroxi ne 88 mcg tablet TAKE 1 TABLET BY MOUTH ONCE DAILY No levothyrox ine 88 mcg tablet TAKE 1 TABLET BY MOUTH ONCE DAILY [facility] magnesium oxide 300 mg magnesium oxide 300 mg No magnesium oxide 300 mg [facility] meloxicam 15 mg tablet TAKE 1 TABLET BY MOUTH ONCE DAILY NEEDED WITH FOOD FOR ARTHRITIS meloxicam 15 mg tablet TAKE 1 TABLET BY MOUTH ONCE DAILY NEEDED WITH FOOD FOR ARTHRITIS No meloxicam 15 mg tablet TAKE 1 TABLET BY MOUTH ONCE DAILY NEEDED WITH FOOD FOR ARTHRITIS [facility] Ocuvite Adult 50 Plus Ocuvite Adult 50 Plus No Ocuvite Adult 50 Plus [facility] Premarin 0.625 mg/gram vaginal cream 0.5mg 3 times a week Premarin 0.625 mg/gram vaginal cream 0.5mg 3 times a week No Premarin 0.625 mg/gram vaginal cream 0.5mg 3 times a week [facility] Prilosec Prilosec No Prilosec [facility] spironolact one 25 mg tablet TAKE 1 TABLET BY MOUTH ONCE DAILY spironolact one 25 mg tablet TAKE 1 TABLET BY MOUTH ONCE DAILY No spironolac tone 25 mg tablet TAKE 1 TABLET BY MOUTH ONCE DAILY [facility] Vitamin C Vitamin C No Vitamin C [facility] Vitamin D3 Vitamin D3 No Vitamin D3 [facility] zinc 50 mg zinc 50 mg No zinc 50 mg [facility] Vital Signs Vital Name Observation Time Observation Value Comments S ource BP Systolic 2024-06-28 00:00:00 149 mm[Hg] [facility] Body Weight 2024-06-28 00:00:00 160.6 [lb_av] [facility] BMI (Body Mass Index) 2024-06-28 00:00:00 28.4 kg/m2 [facility] BP Diastolic 2024-06-28 00:00:00 79 mm[Hg] [facility] Height 2024-06-28 00:00:00 63 [in_i] [facility] Systolic blood pressure 2020-08-30 15:23:00 111 mm[Hg] [facility] Diastolic blood pressure 2020-08-30 15:23:00 61 mm[Hg] [facility] Heart rate 2020-08-30 15:23:00 65 /min [facility] Body temperature 2020-08-30 15:23:00 37.39 Lorie [facility] Respiratory rate 2020-08-30 15:23:00 20 /min [facility] Oxygen saturation in Arterial blood by Pulse oximetry 2020-08-30 15:23:00 99 /min [facility] Body height 2020-08-30 13:17:00 165.1 cm [facility] Body weight 2020-08-30 13:17:00 71.668 kg [facility] BMI 2020-08-30 13:17:00 26.29 kg/m2 [facility] Procedures Procedure Date / Time Performed Performing Clinician Source MAMMO, screening, digital, bilateral 2024-06-28 00:00:00 [facility] [id number] CONSENT 2020-08-30 05:01:00 Doctor Unas signed, Garey [facility] Hysterectomy/bladder Repair 2016-02-15 00:00:00 [facility] Sacrospinous Fixation of Vaginal Vault 2015-05-15 00:00:00 [facility] Carpal Tunnel Surgery 1991-02-14 00:00:00 [facility] Tubal Ligation 1978-02-14 00:00:00 [facility] Tonsillectomy 1962-02-14 00:00:00 [facility] Encounters Start Date/Time End Date/Time Encounter Type Admission Type Attending Clinicians Care Facility Care Department Encounter ID Source 2024-06-28 00:00:00 2024-06-28 00:00:00 Luz Elena Aleman, HYDROTHERAPIST: [address] [place], [facility] [address], [place] [address] , Ph. [facility] - [id number] yeimy Cancino* [id number] [facility] 2020-09-02 14:30:00 2020-09-02 14:30:00 Outpatient OPAL [facility] [id number] [facility] 2020-08-30 08:14:03 2020-08-30 08:44:03 Nurse Visit Therapy, Adc CovOpal Barajas [facility] [id number] [facility] 2020-08-30 08:00:00 2020-08-30 08:00:00 Outpatient OPAL [facility] [id number] [facility] 2020-08-30 00:00:00 2020-08-30 00:00:00 Orders Only Doctor Unassigned, Garey [facility] [id number] [facility] Results Test Description Test Time Test Comments Results Result Co mments Source [facility]
[2024-11-15] MEDS ORDERED: ACETAMINOPHEN 500 MG TAB ONE (08:30)
[2024-11-15] MEDS ORDERED: KETOROLAC 30 MG/ML INJ ONE (08:30)
--- NOTE | 2024-11-15 09:22 | RAD REPORT ---
EXAMINATION: ONE VIEW CHEST XR CLINICAL INDICATION: Female, 79 years old.,Left Upper Back Pain TECHNIQUE: Frontal chest projection is submitted. Examination is limited by patient positioning and t echnique. COMPARISON: 11/06/2023 FINDINGS: The lungs are diffusely emphysematous but grossly clear. No pneumothorax or sizable effusion. The he art is normal in size. Mediastinal contours are unremarkable. IMPRESSION: No acute intrathoracic abnormalities.
--- NOTE | 2024-11-15 09:24 | RAD REPORT ---
EXAMINATION: XR LEFT SHOULDER CLINICAL INDICATION: Female, 79 years old. PAIN TECHNIQUE: Internal and external AP view radiograph of the left shoulder were obtained. COMPARISON: No prior exam. FINDINGS: No evidence of fracture or dislocation. Normal alignment. No focal bone lesion. Mineralizat ion within the subacromial space, could relate to sequelae of calcific tendinitis. Suspected mild glenohumeral joint degenerative changes although suboptimal rotation limits evaluation. IMPRESSION: No acute osseous abnormalities. Findings suggestive of calcific tendinitis.
--- NOTE | 2024-11-15 09:36 | ER ---
Nurse's Notes [facility] Name: Whitney Schmidt Age: 79 yrs Sex: Female : 1945 Arrival Date: 11/15/2024 Time: 07:52 Bed 13 Private MD: Diagnosis: Calcific tendinitis of left shoulder;Strain of muscle and tendon of back wall of thorax, initial encounter Presentation: 11/15 08:27 Chief complaint: Patient states: L SCAPULAR PAIN x 1 WK. Coronavirus screen: At this bp time, the client does not indicate any symptoms associated with coronavirus-19. Ebola Screen: No symptoms or risks identified at this time. Initial Sepsis Screen: Does the patient meet any 2 criteria? No. Patient's initial sepsis screen is negative. Does the patient have a suspected source of infection? No. Patient's initial sepsis screen is negative. Risk Assessment: Do you want to hurt yourself or someone else? Patient reports no desire to harm self or others. Onset of symptoms is unknown. 08:27 Method Of Arrival: Ambulatory bp 08:27 Acuity: MIRLANDE 3 bp Triage Assessment: 08:28 General: Appears in no apparent distress. uncomfortable, Behavior is cooperative, bp appropriate for age, anxious. Pain: Complains of pain in left subscapular area. EENT: No deficits noted. Neuro: No deficits noted. Cardiovascular: No deficits noted. Respiratory: No deficits noted. GI: No signs and/or symptoms were reported involving the gastrointestinal system. : No signs and/or symptoms were reported regarding the genitourinary system. Derm: No deficits noted. Musculoskeletal: No deficits noted. Historical: - Allergies: 08:27 Morphine; bp - PMHx: 08:27 Hyperlipidemia; Hypertension; Hypothyroidism; bp - PSHx: 08:27 benign cyst removal from back; carpal tunnel both hands; Pelvic Floor Repair; cataract bp surgery both eyes; Tonsillectomy; tubal ligation; - Immunization history:: Adult Immunizations up to date. - Infectious Disease History:: Denies. - Social history:: Smoking status: unknown. Screenin:[address] [facility] ED Fall Risk Assessment (Adult) History of falling in the last 3 months, ar8 including since admission Yes- single mechanical fall (1 pt) Confusion or Disorientation No (0 pts) Intoxicated or Sedated No (0 pts) Impaired Gait No (0 pts) Mobility Assist Device Used No (0 pt) Altered Elimination No (0 pt) Score/Fall Risk Level 0 - 2 = Low Risk Oriented to surroundings, Maintained a safe environment. Abuse screen: Denies threats or abuse. Nutritional screening: No deficits noted. Tuberculosis screening: No symptoms or risk factors identified. Assessment: 08:49 General: Appears in no apparent distress. uncomfortable, Behavior is calm, cooperative. ar8 Pain: Complains of pain in left scapular area. Neuro: Level of Consciousness is awake, alert, obeys commands, Oriented to person, place, time, situation. Cardiovascular: Patient's skin is warm and dry. Respiratory: Airway is patent Respiratory effort is even, unlabored, Respiratory pattern is regular, symmetrical. GI: No signs and/or symptoms were reported involving the gastrointestinal system. : No signs and/or symptoms were reported regarding the genitourinary system. EENT: No signs and/or symptoms were reported regarding the EENT system. Musculoskeletal: Reports pain in left scapular area since last Tuesday. Denies injury or trauma to area. Vital Signs: 08:27 BP 181 / 84; Pulse 86; Resp 16; Temp 98.1; Pulse Ox 100% ; bp 08:49 BP 143 / 73; Pulse 76; Resp 16 S; Pulse Ox 97% on R/A; ar8 09:30 BP 129 / 66; Pulse 66; Resp 18; Pulse Ox 97% on R/A; ar8 10:00 Pain 0/10; ar8 10:10 Pain 0/10; ar8 10:00 Pain Scale: Adult ar8 10:10 Pain Scale: Adult ar8 ED Course: 07:58 Patient arrived in ED. im 07:59 Dex[facility]C [facility] 07:59 Ahmet Delvalle MD is Attending Physician. dr5 08:22 Joesph Goodrich, AIDA is Primary Nurse. ar8 08:27 Triage completed. bp 08:27 Arm band placed on. bp 08:40 EKG done, by ED staff, reviewed by Dexter HYMAN. ar8 08:49 Bed in low position. Call light in reach. Side rails up X2. Provided Education on: plan ar8 of care, diagnostics and estimated wait time. Pulse ox on. NIBP on. Warm blanket given. 08:49 No provider procedures requiring assistance completed. ar8 08:55 Shoulder Left (2 View) XRAY In Process Unspecified. EDMS 08:55 Chest Single View XRAY In Process Unspecified. EDMS 10:10 Patient did not have IV access during this emergency room visit. ar8 Administered Medications: 08:46 Drug: Ketorolac IM 30 mg IM once Route: IM; Site: right ventrogluteal; ar8 10:00 Follow up: Pain 0/10 Adult; Response: No adverse reaction; Pain is decreased ar8 08:46 Drug: Acetaminophen PO 1000 mg PO once Route: PO; ar8 10:00 Follow up: Response: No adverse reaction; Pain is decreased ar8 Medication: 08:49 VIS not applicable for this client. ar8 Outcome: 09:35 Discharge ordered by . dr5 10:10 Discharged to home ambulatory, ar8 10:10 Condition: stable 10:10 Discharge instructions given to patient, Instructed on discharge instructions, follow up and referral plans. medication usage, Demonstrated understanding of instructions, follow-up care, medications, Prescriptions given X 2, 10:11 Patient left the ED. ar8 Signatures: Dispatcher [employer] Renny Payne, RN RN Naida Wetzel Dustin, TRANSPORTATION ECONOMICS TEACHER-C TRANSPORTATION ECONOMICS TEACHER-Cdr5 Joesph Goodrich, RN RN ar8
--- NOTE | 2024-11-15 09:36 | EDPHYS ---
Physician Documentation [facility] Name: Whitney Schmidt Age: 79 yrs Sex: Female : 1945 Arrival Date: 11/15/2024 Time: 07:52 Bed 13 Private MD: ED Physician Ahmet Delvalle HPI: 11/15 08:15 This 79 yrs old Female presents to ER via Ambulatory with complaints of dr5 Shoulder Pain - left. 08:15 The patient or guardian complains of pain. Onset: The symptoms/episode began/occurred 2 dr5 day(s) ago. Patient is an 79-year-old female with history of hypertension, hyperlipidemia, hypothyroidism coming in with left lower scapula pain that started 2 days ago. Patient reports that she had tendon issues and broken bone on right arm, so has been using left arm primarily. Patient reports that she has been watering her garden using her left arm a lot in which her left back pain started. Patient denies chest pain, shortness of breath. Patient states that the pain is the worst in the morning and improves as she gets up and moves around. Patient reports pain when lifting up her arm completely above her head.. Historical: - Allergies: 08:27 Morphine; bp - PMHx: 08:27 Hyperlipidemia; Hypertension; Hypothyroidism; bp - PSHx: 08:27 benign cyst removal from back; carpal tunnel both hands; Pelvic Floor Repair; cataract bp surgery both eyes; Tonsillectomy; tubal ligation; - Immunization history:: Adult Immunizations up to date. - Infectious Disease History:: Denies. - Social history:: Smoking status: unknown. ROS: 08:15 Constitutional: as per hpi dr5 Exam: 08:15 Constitutional: This is a well developed, well nourished patient who is awake, alert, dr5 and in no acute distress. Head/Face: Normocephalic, atraumatic. Eyes: Pupils equal round and reactive to light, extra-ocular motions intact. Lids and lashes normal. Conjunctiva and sclera are non-icteric and not injected. Cornea within normal limits. Periorbital areas with no swelling, redness, or edema. Neck: Trachea midline, no thyromegaly or masses palpated, and no cervical lymphadenopathy. Supple, full range of motion without nuchal rigidity, or vertebral point tenderness. No Meningismus. Chest/axilla: Normal chest wall appearance and motion. Nontender with no deformity. No lesions are appreciated. Cardiovascular: Regular rate and rhythm with a normal S1 and S2. Normal PMI, no JVD. No pulse deficits. Respiratory: Lungs have equal breath sounds bilaterally, clear to auscultation. No rales, rhonchi or wheezes noted. No increased work of breathing, no retractions or nasal flaring. Skin: Warm, dry with normal turgor. Normal color with no rashes, no lesions, and no evidence of cellulitis. MS/ Extremity: Pulses equal, no cyanosis. Neurovascular intact. Full, normal range of motion. Neuro: Awake and alert, GCS 15, oriented to person, place, time, and situation. Cranial nerves II-XII grossly intact. Motor strength 5/5 in all extremities. Sensory grossly intact. Cerebellar exam normal. Normal gait. 08:15 Back: pain, that is mild, of the left subscapular area, ROM is normal, normal spinal alignment noted, CVA tenderness, is absent, Vital Signs: 08:27 BP 181 / 84; Pulse 86; Resp 16; Temp 98.1; Pulse Ox 100% ; bp 08:49 BP 143 / 73; Pulse 76; Resp 16 S; Pulse Ox 97% on R/A; ar8 09:30 BP 129 / 66; Pulse 66; Resp 18; Pulse Ox 97% on R/A; ar8 10:00 Pain 0/10; ar8 10:10 Pain 0/10; ar8 10:00 Pain Scale: Adult ar8 10:10 Pain Scale: Adult ar8 MDM: 07:59 Medical Screening Exam initiated dr5 09:48 Differential diagnosis: humeral head fracture, DJD, tendonitis. Data reviewed: vital dr5 signs, nurses notes, EKG, radiologic studies, plain films. Consideration of Admission/Observation Escalation of care including admission/observation considered. Escalation considered patient found to have open fracture. I considered the following discharge prescriptions or medication management in the emergency department I discussed and recommended Over The Counter medications, Medications were administered in the Emergency Department. See MAR. Independent interpretation of the following test(s) in the Emergency Department X-Ray: My interpretation is Independent interpretation of x-ray does not reveal a fracture. Care significantly affected by the following chronic conditions: Hypertension, hyperlipidemia, hypothyroidism. Care significantly affected by the following Social Determinants of Health: Poor access to healthcare and/or lack of insurance, Poor access to transportation, Problems related to employment. Counseling: I had a detailed discussion with the patient and/or guardian regarding the historical points, exam findings, and any diagnostic results supporting the discharge/admit diagnosis, the presence of at least one elevated blood pressure reading (>120/80) during this emergency department visit, radiology results, the need for outpatient follow up, for definitive care, a family practitioner, a orthopedic surgeon, to return to the emergency department if symptoms worsen or persist or if there are any questions or concerns that arise at home. Medication response: Toradol relieved patient's pain. The symptoms have resolved. Response to treatment: the patient's symptoms have resolved after treatment, the patient's condition has returned to base line, the patient is now symptom free, Patient is able to fully range left arm without pain.. Special discussion: I discussed with the patient/guardian in detail that at this point there is no indication for admission to the hospital. It is understood, however, that if the symptoms persist or worsen the patient needs to return immediately for re-evaluation. Based on the history and exam findings, there is no indication for further emergent testing or inpatient evaluation. I discussed with the patient/guardian the need to see the orthopedic surgeon for further evaluation of the symptoms. ED course: CD and x-ray reports printed and given to patient to take with her. Will give short course of steroids and anti-inflammatory. Recommended following up with Dr. Cary, her orthopedic doctor, if pain lasts longer than 3 days. Patient is agreeable to plan. All questions answered. Strict ER precautions given. Vital signs stable at discharge.. 11/15 08:07 Order name: Shoulder Left (2 View) XRAY; Complete Time: :33 dr5 11/15 08:15 Order name: Chest Single View XRAY; Complete Time: :33 dr5 11/15 08:15 Order name: EKG; Complete Time: 08:16 dr5 11/15 08:15 Order name: EKG - Nurse/Tech; Complete Time: dr5 EC:40 Rate is 72 beats/min. Rhythm is regular. QRS [place] is Normal. HI interval is normal at dr5 132 msec. QRS interval is normal at 90 msec. Clinical impression: Normal ECG and No evidence of ischemia. Administered Medications: 08:46 Drug: Ketorolac IM 30 mg IM once Route: IM; Site: right ventrogluteal; ar8 10:00 Follow up: Pain 0/10 Adult; Response: No adverse reaction; Pain is decreased ar8 08:46 Drug: Acetaminophen PO 1000 mg PO once Route: PO; ar8 10:00 Follow up: Response: No adverse reaction; Pain is decreased ar8 Disposition: 18:38 Co-signature as Attending Physician, Ahmet Delvalle MD I reviewed the patient's care rn provided by the Advanced Practice Provider and agree with the diagnosis and treatment plan. Disposition Summary: 11/15/24 09:35 Discharge Ordered Notes: Location: Home dr5 Condition: Stable dr5 Diagnosis - Calcific tendinitis of left shoulder dr5 - Strain of muscle and tendon of back wall of thorax, initial encounter dr5 Followup: dr5 - With: Emergency Department - When: As needed - Reason: Worsening of condition Followup: dr5 - With: Private Physician - When: 1 - 2 days - Reason: Recheck today's complaints, Continuance of care, Re-evaluation by your physician Discharge Instructions: - Discharge Summary Sheet dr5 - Muscle Strain dr5 - Tendinitis dr5 Forms: - Medication Reconciliation Form dr5 - Patient Portal Instructions dr5 - Leadership Thank You Letter dr5 Prescriptions: - Ibuprofen 800 mg Oral Tablet - take 1 tablet ORAL route every 12 hours As needed take with food; 20 tablet; dr5 Refills: 0, Product Selection Permitted - Medrol (Morris) 4 mg Oral Tablets, Dose Pack - take 1 tablet ORAL route as directed - follow package instructions; 1 packet; dr5 Refills: 0, Product Selection Permitted Signatures: Dispatcher [employer] EDAhmet Puri MD MD rn Peltier, Brian RN Dexter Rene, MINE UTILITY OPERATOR-C MINE UTILITY OPERATOR-Cdr5 Joesph Goodrich RN RN ar8 Corrections: (The following items were deleted from the chart) 08:07 08:07 Shoulder Left 2 View+RAD.[email or web address] ordered. PIPO FOSS
[2024-11-15 10:19] VITALS: TEMP 98.1
[2024-11-15 10:21] VITALS: O2SAT 97
[2024-11-15 10:22] VITALS: BP 129/66
== END 2024-11-15 10:11 | disposition home or self-care (01) ==
LOC: ER 07:52
DX: M75.32 Calcific tendinitis of left shoulder (principal); S29.012A Strain of muscle and tendon of back wall of thorax, initial encounter
CPT/HCPCS: 93005; 71045; 73030; 96372; 99284; J1885